=== PATIENT | male | born 1970 | race Caucasian/White ===

== ENCOUNTER 2017-01-26 18:03 | Emergency (ER) | payer SELFPAY ==
--- NOTE | ~2017-01-26 | ER ---
PATIENT'S NAME: TOMAS ROME [facility] AGE: 46 Y [address] ROOM: [place] [address] LOCATION: [facility] ADMIT DATE: 01/26/2017 ER/Outpatient Report DISCHARGE DATE: 01/26/2017 FAMILY PHYSICIAN: Adria Wilson MD ATTENDING PHYSICIAN: Jose Angel Serrano ADDENDUM: The patient was going to be admitted to the hospital; however, with his job and work, he had some duties to do tonight, so he wanted to go home instead of being admitted to the hospital. He will call Dr. Matamoros tomorrow morning for possible arrangements for cystoscopy and stent placement. The patient dismissed home. Continue present home medications and care. N.p.o. after midnight. [facility] 10/325 as needed for pain. Zofran ODT 4 mg as needed for nausea and vomiting. Again, he is supposed to talk with Dr. Matamoros tomorrow morning with the possibility of having operative procedure, cystoscopy and stent placement, left ureter. Discussion ensued with the patient concerning my findings and recommendations, he understands, and he desires again to go home. MD ZORAIDA DEWEY/modl /[id number] d: 01/27/17 0244 t: 02/01/17 1907, OUTPATIENT REPORT
--- NOTE | ~2017-01-26 | ER ---
PATIENT'S NAME: TOMAS ROME [facility] AGE: 46 Y [address] ROOM: [place] [address] LOCATION: ED ADMIT DATE: 01/26/2017 ER/Outpatient Report DISCHARGE DATE: 01/26/2017 FAMILY PHYSICIAN: Adria Wilson MD ATTENDING PHYSICIAN: Jose Angel Serrano Admission date and time documented on the medical record. I saw the patient at 1830 hours. CHIEF COMPLAINT: Left flank pain. HISTORY OF PRESENT ILLNESS: This is a 46-year-old male, who comes in with about a 24-hour history of left low back pain. It radiates around to his left groin area. He states that he feels like he is having spasms. He has had no buttock or leg pain. Increased pain with movement. He has some nausea, but no vomiting, diarrhea, or urinary frequency, urgency, or dysuria. No recent colds, coughs, flus, fever, chills, or sweats. No lightheadedness, dizziness, syncope, or near syncope. No headache; eyes, ears, nose, throat, neck, or spine pain. No chest pain or shortness of breath. Abdominal pain is constant, but intensifies off and on. Does have a history of nephrolithiasis x2, one he passed spontaneously and the other had to be extracted with cystoscopy. No joint or muscle swelling, redness, or pain. No skin eruptions or rash. No history of psych issues, neuro changes, or endocrine problems. HOME MEDICATIONS: See attached medication list. ALLERGIES: CODEINE. SOCIAL HISTORY: Nonsmoker. Occasional intake of alcohol. SIGNIFICANT PAST MEDICAL HISTORY: Hypertension, nephrolithiasis, morbid obesity, remote tobacco abuse, degenerative osteoarthritis with degenerative joint disease. PAST SURGICAL HISTORY: Umbilical herniorrhaphy, nasal surgery, cystoscopy with stone extraction. REVIEW OF SYSTEMS: All systems reviewed by me are negative with the exception of those discussed in the history of present illness. PATIENT'S NAME: TOMAS ROME [facility] AGE: 46 Y [address] ROOM: [place] [address] LOCATION: ED ADMIT DATE: 01/26/2017 ER/Outpatient Report DISCHARGE DATE: 01/26/2017 FAMILY PHYSICIAN: Adria Wilson MD ATTENDING PHYSICIAN: Jose Angel Serrano PHYSICAL EXAMINATION: VITAL SIGNS: Temperature 97.4 tympanic, pulse 95, respirations 18, blood pressure 186/111, O2 saturation on room air is 93%. HEAD: Normocephalic. EYES, EARS, NOSE, THROAT: Clear. Mucous membranes moist. NECK: No nuchal rigidity. No findings of adenopathy. No tenderness. SPINE: Nontender. No deformity. LUNGS: Clear. Good air flow. No rales, rhonchi, or wheezes. HEART: Regular. Pulses are palpable. No chest wall or ribcage pain to palpation. ABDOMEN: Large, obese, soft, good bowel tones. No organomegaly or abnormal mass palpable. A little bit of left flank tenderness. No true CVA tenderness. PELVIS: Stable. EXTREMITIES: No peripheral edema, cyanosis, or deformity. NEUROVASCULAR: Intact. SKIN: Clear. No skin eruptions or rash. LABORATORY DATA: Urine showed 2-5 whites, 5-10 reds, 5-10 epithelial cells, few bacteria, 2+ mucus, calcium oxalate crystals, negative nitrites on dipstick. CMS was normal except for an elevated glucose of 262. White count was 12,200, 79 segs, 12 lymphs, 6 monos, 2 eos, 1 baso, hemoglobin was 13.8, hematocrit 42.6, platelet count was 288,000. CT scan of the abdomen and pelvis with renal stone protocol showed a proximal 5 mm left ureteral stone with partial collecting system obstruction. Stone was just outside the kidney at the UPJ, ureteropelvic junction. CT scan was read by Radiology, see dictated transcribed report. I did give the patient IV Dilaudid, IV Toradol for pain, and IV Zofran for nausea. IMPRESSION: 1. A 5 mm left proximal ureteral stone at the ureteropelvic junction with partial collecting system obstruction. The patient has left flank pain with microscopic hematuria. 2. Elevated blood sugar at 262, questionable development of diabetes mellitus type 2. 3. Hypertension. 4. Morbid obesity. 5. Remote tobacco abuse. 6. Degenerative osteoarthritis, degenerative joint disease. PLAN: I discussed the patient with Dr. Matamoros for Dr. Adria Wilson. Dr. Matamoros is coming to the emergency room to evaluate the patient, to admit PATIENT'S NAME: TOMAS ROME [facility] AGE: 46 Y [address] ROOM: [place] [address] LOCATION: [facility] ADMIT DATE: 01/26/2017 ER/Outpatient Report DISCHARGE DATE: 01/26/2017 FAMILY PHYSICIAN: Adria Wilson MD ATTENDING PHYSICIAN: Jose Angel Serrano the patient to the hospital. Most likely, the patient will need cystoscopy with left ureteral stent placement followed by lithotripsy next week. Discussion ensued with the patient concerning my findings and recommendations, he understands. MD ZORAIDA DEWEY/sonnyl /[id number] d: 01/27/17 0205 t: 02/01/17 1904, OUTPATIENT REPORT
[2017-01-26 18:36] LABS: BILIRUBIN URINE NEGATIVE (NEGATIVE); BLOOD URINE 25 /UL (NEGATIVE); GLUCOSE URINE 50 mg/dL (NEGATIVE); KETONE URINE NEGATIVE (NEGATIVE); LEUKOCYTES URINE NEGATIVE /UL (NEGATIVE); NITRITE URINE NEGATIVE (NEGATIVE); PROTEIN URINE 15 mg/dL (NEGATIVE); UROBILINOGEN URINE NORMAL (NORMAL)
[2017-01-26 18:38] LABS: COLOR URINE YELLOW (YELLOW); TURBIDITY URINE CLEAR (CLEAR)
[2017-01-26 18:55] LABS: BACTERIA URINE FEW (NEGATIVE)
[2017-01-26 18:56] LABS: MUCUS URINE 2+ (NEGATIVE)
[2017-01-26 18:57] LABS: CRYSTALS URINE CALCIUM OXALATE (NEGATIVE)
[2017-01-26 19:24] LABS: BASOPHIL # 0.1 K/uL (0.0-0.2); BASOPHIL % 0.5 %; EOSINOPHIL # 0.2 K/uL (0.0-0.5); EOSINOPHIL % 1.6 %; HEMATOCRIT 42.6 % (37.0-53.0); HEMOGLOBIN 13.8 g/dL (12.0-17.0); IMMATURE GRANULOCYTE # 0.1 K/uL (0.0-0.3); IMMATURE GRANULOCYTE % 0.6 %; LYMPHOCYTE # 1.5 K/uL (0.8-4.0); MCH 28.3 pg (27.0-34.0); MCHC 32.4 gm/dL (32.0-36.5); MCV 87.5 fl (83.0-98.0); MONOCYTE # 0.7 K/uL (0.0-1.0); MONOCYTE % 6.1 %; MPV 9.1 fl (9.4-12.4); NEUTROPHIL # (ANC) 9.7 K/uL (1.4-9.0); NEUTROPHIL % 79.2 %; NRBC % 0 /100WBC (0-0.00); PLATELET COUNT 288 K/uL (150-450); RBC 4.87 M/uL (4.00-6.00); RDW-CV 14.5 % (11.9-14.6); WBC 12.2 K/uL (4.0-11.0)
[2017-01-26 19:40] LABS: ALBUMIN 3.4 gm/dL (3.5-5.0); ALK PHOS 103 IU/L (33-138); ALT 27 IU/L (12-78); AST 12 IU/L (10-40); BLOOD UREA NITROGEN 13 mg/dL (6-24); CALCIUM 9.1 mg/dL (8.5-10.5); CHLORIDE 108 mMol/L (96-110); CO2 23 mMol/L (22-32); CREATININE 0.8 mg/dL (0.6-1.3); ESTIMATED GFR (MDRD EQUATION) > 60; SODIUM 141 mMol/L (135-145); TOTAL BILIRUBIN 0.4 mg/dL (0.0-1.5); TOTAL PROTEIN 7.4 g/dL (6.0-8.4)
[2017-01-27] MEDS ORDERED: PERCOCET 5-3251 EACH PO (16:09)
[2017-01-27] MEDS ORDERED: ULTRAM50 MG PO (16:09)
[2017-01-31] MEDS ORDERED: PERCOCET 5-3251 EACH PO (13:52)
== END 2017-01-26 20:51 | disposition disaster alternative care site (69) ==
LOC: GMED 18:03 → GMSU 20:40 → GMED 20:40
PROVIDERS: Emergency Medicine
DX: N13.2 Hydronephrosis with renal and ureteral calculous obstruction (principal); I10 Essential (primary) hypertension; E66.01 Morbid (severe) obesity due to excess calories; M19.90 Unspecified osteoarthritis, unspecified site; R73.9 Hyperglycemia, unspecified; Z88.5 Allergy status to narcotic agent; Z79.899 Other long term (current) drug therapy; Z98.890 Other specified postprocedural states; Z87.891 Personal history of nicotine dependence
CPT/HCPCS: J1170; J1885; J2405

== ENCOUNTER → 2017-01-31 | Day surgery (SDC) | payer SELFPAY ==
[~2017-01-31] VITALS: Ht 177.8 cm; Wt 163.6 kg
[~2017-01-31] MED LIST: PERCOCET 5-3251 EACH PO; ULTRAM50 MG PO
--- NOTE | ~2017-01-31 | OR ---
PATIENT'S NAME: TOMAS ROME [facility] AGE: 46 Y [address] ROOM: [place] [address] LOCATION: [facility] ADMIT DATE: 01/31/2017 OR/Procedure Report DISCHARGE DATE: FAMILY PHYSICIAN: Adria Wilson MD ATTENDING PHYSICIAN: DELON MARKS SURGEON: Delon Marks MD SENIOR BIOINFORMATICS SCIENTIST: None. DATE OF PROCEDURE: 01/31/2017 PREOPERATIVE DIAGNOSIS: Left proximal ureteral calculus. POSTOPERATIVE DIAGNOSIS: Left proximal ureteral calculus. OPERATIVE PROCEDURES: 1. Cystoscopy with manipulation of left proximal ureteral calculus. 2. Cystoscopy with placement of indwelling left ureteral stent. 3. Left extracorporeal shockwave lithotripsy. INDICATIONS FOR PROCEDURE: The patient is a pleasant 46-year-old male with history of recurrent nephrolithiasis. He most recently presented with left flank pain and was found to have a 5 mm proximal left ureteral calculus. The patient ultimately opted for intervention. Given his previous history of extracorporeal shockwave lithotripsy and significant respiratory motion during prior treatments, we have had better luck in the past with general anesthesia for him and the patient wanted to proceed. ANESTHESIA: General endotracheal anesthesia. DESCRIPTION OF PROCEDURE: The patient was brought back to the operating room where he was placed on the OR table in the supine position. A surgical time- out was called where patient identification, surgical site, and procedure was then verified. We also did verify that the patient received an IV Levaquin antibiotic within an hour beginning the procedure. The patient then underwent successful administration of general endotracheal anesthesia. The patient was then moved and placed in a low lithotomy position where he was then prepped and draped in the usual sterile fashion. I began by carefully advancing the rigid cystoscope easily into the patient's urinary bladder. He did have evidence of a bulbar urethral stricture, which was approximately 22-Chinese in caliber and was quite soft in nature and I was easily able to advance the rigid cystoscope past the area of stricture and up into his bladder. His posterior urethra was notable for some mild bilobar hyperplasia of the prostate. Full lopez-cystoscopy was performed and his bladder was negative for any bladder tumors, cellules, or diverticula. He did have some mild bladder trabeculation. His ureteral orifices were noted to be in their orthotopic location. I then carefully advanced a guidewire up to the level of the PATIENT'S NAME: TOMAS ROME [facility] AGE: 46 Y [address] ROOM: [place] [address] LOCATION: [facility] ADMIT DATE: 01/31/2017 OR/Procedure Report DISCHARGE DATE: FAMILY PHYSICIAN: Adria Wilson MD ATTENDING PHYSICIAN: DELON MARKS proximal left ureteral stone. Then, over the wire, I advanced a 5-Chinese open- ended ureteral catheter. Then, using a saline flush, I was able to carefully manipulate the stone from his proximal ureter up into the mid pole renal collecting system. I then readvanced the wire through the ureteral catheter and removed the ureteral catheter leaving the wire in place. Then, over the wire, I advanced a 4.8-Chinese multi-length ureteral stent, deploying it, noting a good curl fluoroscopically in the patient's left renal collecting system and a good curl visually in the patient's bladder. I then emptied the patient's bladder. The patient was then taken out of the lithotomy position where he was then transferred over to the recovery bed and then transported to the lithotripsy treatment bed where he was placed in the supine position. We then brought the stone into focal point using fluoroscopy. We then began performing shockwave lithotripsy starting at 14 kilovolts and working up sequentially to 24 kilovolts in energy. Approximately 3000 shocks were delivered to the stone. We had nice fragmentation by fluoroscopic monitoring. Of note, we were able to reach the stone with our focal point, but thought that had the stone anymore medial, we would not be able to reach the stone with our machine. Again, we had nice fragmentation by fluoroscopic monitoring. The patient was then awoken from general anesthesia where he was extubated and transferred to recovery bed and transported to the recovery room in good condition. COMPLICATIONS: None. DRAINS: Indwelling 4.8-Chinese multilink left ureteral stent. FOLLOWUP PLAN: We will plan to see the patient back for followup in Urology Clinic in 2 weeks with a plain film KUB and if no large residual fragments remaining, plan for stent removal at that time. DELON CAROL, MD GP/modl /[id number] CC: Adria Wilson MD d: 01/31/17 1836 t: 02/01/17 0835, OPERATIVE SUMMARY
== END | disposition disaster alternative care site (69) ==
LOC: GPOC 01-27 17:00 → GSDC 09:20
PROC: 0T778DZ Dilation of Left Ureter with Intraluminal Device, Via Natural or Artificial Opening Endoscopic (ICD-10-PCS; principal; 2017-01-31)
PROC: 0TC78ZZ Extirpation of Matter from Left Ureter, Via Natural or Artificial Opening Endoscopic (ICD-10-PCS; 2017-01-31)
PROC: 0TF7XZZ Fragmentation in Left Ureter, External Approach (ICD-10-PCS; 2017-01-31)
DX: N20.1 Calculus of ureter (principal); N35.9 Urethral stricture, unspecified; N40.0 Benign prostatic hyperplasia without lower urinary tract symptoms; M19.90 Unspecified osteoarthritis, unspecified site; I10 Essential (primary) hypertension; E66.01 Morbid (severe) obesity due to excess calories; Z98.890 Other specified postprocedural states; Z88.5 Allergy status to narcotic agent; Z79.899 Other long term (current) drug therapy
CPT/HCPCS: C1769; C2617; J1956; J2001; J7030

== ENCOUNTER → 2017-02-17 | Outpatient (CLI) | payer SELFPAY | END | disposition disaster alternative care site (69) | LOC: GRAD 13:15 | DX: N20.0 Calculus of kidney (principal); Z96.0 Presence of urogenital implants ==

== ENCOUNTER 2017-02-22 22:38 | Emergency (ER) | payer SELFPAY ==
--- NOTE | ~2017-02-22 | ER ---
PATIENT'S NAME: TOMAS ROME [facility] AGE: 46 Y [address] ROOM: [place] [address] LOCATION: [facility] ADMIT DATE: 02/22/2017 ER/Outpatient Report DISCHARGE DATE: 02/22/2017 FAMILY PHYSICIAN: Adria Wilson MD ATTENDING PHYSICIAN: Jose Angel Serrano Time of Patient's Arrival: 2238 hours. Time of Patient's Evaluation: 2300 hours. CHIEF COMPLAINT: Left ankle injury. HISTORY OF PRESENT ILLNESS: This is a 46-year-old male who presents to the ER. He states that he rolled his ankle in his yard around 0830 hours. The patient states that he is having pain on the lateral aspect of his ankle. He denies injuring anything else during this fall. ALLERGIES: NO KNOWN ALLERGIES. MEDICATIONS: Please see medication list in nurse's notes. PAST MEDICAL HISTORY: Arthritis and hernia repair. SOCIAL HISTORY: Drinks alcohol rarely. Denies any smoking use. REVIEW OF SYSTEMS: CONSTITUTIONAL: Denies any change in weight or fatigue. MUSCULOSKELETAL: He is complaining of left ankle pain. HEME: No easy bruising or bleeding. SKIN: No lesions or rashes. PHYSICAL EXAMINATION: VITAL SIGNS: Height 5 feet 9 inches stated, weight 164 kg taken, blood pressure is 172/87, pulse 99, respirations 18, temperature 98.8 degrees tympanically, and saturations 93% on room air. Page Coma Score is 15. GENERAL: Alert, calm, obese male, in mild distress. EXTREMITIES: No clubbing or cyanosis. He has decreased range of motion of his left ankle secondary to pain. He does have some swelling and ecchymosis noted to the lateral aspect of his left ankle. He does have tenderness over his left lateral malleolus as well. He has no tenderness in metatarsals in PATIENT'S NAME: TOMAS ROME [facility] AGE: 46 Y [address] ROOM: [place], [place] [address] LOCATION: [facility] ADMIT DATE: 02/22/2017 ER/Outpatient Report DISCHARGE DATE: 02/22/2017 FAMILY PHYSICIAN: Adria Wilson MD ATTENDING PHYSICIAN: Jose Angel Serrano his left foot. He has no acute tenderness in his left knee. LABORATORY DATA: None were done. X-RAYS: X-rays of the left ankle show an old chip fracture, but no acute fracture. IMPRESSION: Left ankle injury. ASSESSMENT AND PLAN: We did place the patient in an Jamie wrap for support. We will give him some crutches to ambulate with. He needs to ice and elevate the foot. We will also send him home with a prescription for Hosmer to use as directed. He may alternate that with ibuprofen if needed and should follow up with his primary care. MINA MCINTYRE PA-C FOR MD ALDO DEWEY/saima /[id number] d: 02/23/171805 t: 02/24/171817, OUTPATIENT REPORT
== END 2017-02-22 23:34 | disposition disaster alternative care site (69) ==
LOC: GACC 22:38
DX: S90.02XA Contusion of left ankle, initial encounter (principal); M19.90 Unspecified osteoarthritis, unspecified site; Z79.891 Long term (current) use of opiate analgesic; Z98.890 Other specified postprocedural states; Z79.899 Other long term (current) drug therapy; X50.1XXA Overexertion from prolonged static or awkward postures, initial encounter; Y92.096 Garden or yard of other non-institutional residence as the place of occurrence of the external cause